=== PATIENT | male | born 1985 | race Caucasian/White ===

== ENCOUNTER 2016-12-15 18:14 | Emergency (ER) | payer OTHER, MEDICAID ==
[2016-12-15] MEDS ORDERED: ONDANSETRON 4 MG TAB.RAPDIS PO ONE (18:46)
[2016-12-15] MEDS ORDERED: ACETAMINOPHEN WITH CODEINE #3 TABLET PO ONE (18:46)
--- NOTE | 2016-12-15 18:53 | ER Document Report ---
ED Medical Screen (RME) - General Chief Complaint: Post Surgical Pain Stated Complaint: POST OP COMPLICATIONS Time Seen by Provider: 12/15/16 18:45 Mode of Arrival: Wheelchair Information source: Patient Notes: Pt is a 31 year old male who presents to the ER today for left knee pain after having meniscus repair done Friday in [place] by morenita Garciasurprabhakar at [facility]. He states he's had increased pain in the knee, when he stands he gets pale and has 10/10 pain, nauseated and has had a fever today of 100.5F but took one norco which did not relieve any pain but helped the fever. He states he's seen blood through adriana wrap and the leg is warm to touch. TRAVEL OUTSIDE OF THE [place] IN LAST 30 DAYS: No - Related Data Allergies/Adverse Reactions: No Known Allergies Allergy (Verified 12/15/16 18:45) Past Medical History - General Information source: Patient Renal/ Medical History: Denies: Hx Peritoneal Dialysis Past Surgical History: Reports: Hx Abdominal Surgery - hERNIA REPAIR - Immunizations Hx Diphtheria, Pertussis, Tetanus Vaccination: Yes Review of Systems - Review of Systems Constitutional: See HPI Musculoskeletal: See HPI Skin: See HPI Physical Exam - Vital signs Vitals: Temp Pulse Resp BP Pulse Ox 98.3 F 101 H 16 127/78 H 97 12/15/16 18:17 12/15/16 18:17 12/15/16 18:17 12/15/16 18:17 12/15/16 18:17 - Notes Notes: PHYSICAL EXAMINATION: GENERAL: in wheelchair with leg propped up in brace, but in no acute distress. EXTREMITIES: left leg in brace from surgery Course - Vital Signs Vital signs: Temp Pulse Resp BP Pulse Ox 98.3 F 101 H 16 127/78 H 97 12/15/16 18:17 12/15/16 18:17 12/15/16 18:17 12/15/16 18:17 12/15/16 18:17
[2016-12-15 19:46] LABS: ABSOLUTE BASOPHILS # (AUTO) 0.1 10^3/uL (0.0-0.2); ABSOLUTE EOSINOPHILS # (AUTO) 0.3 10^3/uL (0.0-0.6); ABSOLUTE LYMPHOCYTES (AUTO) 3.4 10^3/uL (0.5-4.7); ABSOLUTE MONOCYTES (AUTO) 0.7 10^3/uL (0.1-1.4); ABSOLUTE NEUT (AUTO) 6.4 10^3/uL (1.7-8.2); BASOPHILS % (AUTO) 0.6 % (0-2); EOSINOPHILS % (AUTO) 2.4 % (0-6); HEMATOCRIT 38.2 % (37.9-51.0); HEMOGLOBIN 12.6 g/dL (13.5-17.0); HGB HCT DIFFERENCE -0.4; LYMPHOCYTES % (AUTO) 31.6 % (13-45); MEAN CORPUSCULAR HEMOGLOBIN 28.9 pg (27.0-33.4); MEAN CORPUSCULAR HGB CONC 32.9 g/dL (32.0-36.0); MEAN CORPUSCULAR VOLUME 88 fl (80-97); MONOCYTES % (AUTO) 6.6 % (3-13); RED BLOOD COUNT 4.36 10^6/uL (4.35-5.55); RED CELL DISTRIBUTION WIDTH 12.7 % (11.5-14.0); SEGMENTED NEUTROPHILS % (AUTO) 58.8 % (42-78); WHITE BLOOD COUNT 10.9 10^3/uL (4.0-10.5)
[2016-12-15 20:04] LABS: ALANINE AMINOTRANSFERASE 32 U/L (21-72); ALBUMIN 3.7 g/dL (3.5-5.0); ALKALINE PHOSPHATASE 63 U/L (38-126); ANION GAP 12 (5-19); ASPARTATE AMINO TRANSFERASE 17 U/L (17-59); BILIRUBIN,DIRECT 0.4 mg/dL (0.0-0.4); BILIRUBIN,TOTAL 0.6 mg/dL (0.2-1.3); BLOOD UREA NITROGEN 12 mg/dL (7-20); CALCIUM 8.8 mg/dL (8.4-10.2); CARBON DIOXIDE 25 mmol/L (22-30); CHLORIDE 104 mmol/L (98-107); CREATININE RESULT 0.98 mg/dL (0.52-1.25); GLUCOSE 99 mg/dL (75-110); POTASSIUM 4.1 mmol/L (3.6-5.0); SODIUM 140.5 mmol/L (137-145); TOTAL PROTEIN 6.5 g/dL (6.3-8.2)
[2016-12-15] MEDS ORDERED: MORPHINE SULFATE 10 MG/ML INJ IM ONE (20:57)
--- NOTE | 2016-12-15 21:03 | ER Document Report ---
ED Extremity Problem, Lower - General Chief Complaint: Post Surgical Pain Stated Complaint: POST OP COMPLICATIONS Time Seen by Provider: 12/15/16 18:45 Mode of Arrival: Wheelchair Notes: Patient is a 31-year-old male that comes emergency department for chief complaint of left knee pain, he had a meniscal repair and osteotomy performed on Friday12/13/[address] Betancourt at [facility]. He states today pain has particularly increased in the knee, he states that if he stands the pain is severe and nauseating, he also states that today he felt feverish and checked his temperature and had a temperature of 100.5. He states his leg is increasingly warm to the touch. Past medical history of 2 surgeries performed on the same knee, migraines, denies any other medical history. TRAVEL OUTSIDE OF THE [place] IN LAST 30 DAYS: No - Related Data Allergies/Adverse Reactions: No Known Allergies Allergy (Verified 12/15/16 18:45) Past Medical History - General Information source: Patient - Social History Smoking Status: Never Smoker Drug Abuse: None Lives with: Family Family History: Reviewed & Not Pertinent - Medical History Medical History: Negative Renal/ Medical History: Denies: Hx Peritoneal Dialysis Past Surgical History: Reports: Hx Abdominal Surgery - hERNIA REPAIR - Immunizations Hx Diphtheria, Pertussis, Tetanus Vaccination: Yes Review of Systems - Review of Systems Constitutional: No symptoms reported EENT: No symptoms reported Cardiovascular: No symptoms reported Respiratory: No symptoms reported Gastrointestinal: No symptoms reported Genitourinary: No symptoms reported Male Genitourinary: No symptoms reported Musculoskeletal: See HPI Skin: No symptoms reported Hematologic/Lymphatic: No symptoms reported Neurological/Psychological: No symptoms reported Physical Exam - Vital signs Vitals: Temp Pulse Resp BP Pulse Ox 98.3 F 101 H 16 127/78 H 97 12/15/16 18:17 12/15/16 18:17 12/15/16 18:17 12/15/16 18:17 12/15/16 18:17 Interpretation: Normal - General General appearance: Appears well In distress: None - HEENT Head: Normocephalic, Atraumatic Eyes: Normal Conjunctiva: Normal Extraocular movements intact: Yes Eyelashes: Normal Pupils: PERRL Nasal: Normal Mouth/Lips: Normal Mucous membranes: Normal Pharynx: Normal Neck: Normal - Respiratory Respiratory status: No respiratory distress Chest status: Nontender Breath sounds: Normal Chest palpation: Normal - Cardiovascular Rhythm: Regular. No: Tachycardia Heart sounds: Normal auscultation, S1 appreciated, S2 appreciated Murmur: No - Abdominal Inspection: Normal Distension: No distension Bowel sounds: Normal Tenderness: Nontender Organomegaly: No organomegaly - Back Back: Normal, Nontender. No: Tender, Vertebra tenderness - Extremities General upper extremity: Normal inspection, Nontender, Normal color, Normal ROM , Normal temperature General lower extremity: Other - 11 cm vertical incision extending below the right patella, lucy in place, no purulent drainage, good wound closure/ healing. Small 1 cm adjacent stapled wound lateral to this also with no unremarkable appearance. General knee is erythematous, warm, swollen. No pain out of proportion on examination of the area, normal distal sensation and capillary refill, normal distal pulses. Unremarkable exam otherwise. - Neurological Neuro grossly intact: Yes Cognition: Normal Orientation: AAOx4 Hewitt Coma Scale Eye Opening: Spontaneous Sima Coma Scale Verbal: Oriented Sima Coma Scale Motor: Obeys Commands Sima Coma Scale Total: 15 Speech: Normal Motor strength normal: LUE, RUE, LLE, RLE Sensory: Normal - Psychological Associated symptoms: Normal affect, Normal mood - Skin Skin Temperature: Warm Skin Moisture: Dry Skin Color: Normal Course - Re-evaluation Re-evalutation: CBC shows mild leukocytosis with no shift. ESR is very slightly elevated, CRP is slightly elevated. No overt abnormalities on imaging. Knee is swollen and has some surrounding erythema, however wounds look normal in appearance, calf is not significantly tender, there is no streaking away from the site. Discussed with Dr. Flores. Called and spoke with patient's surgeon, Dr. Betancourt, patient provided contact number. Discussed presentation, discussed labs, discussed x-ray. Discussed examination of the knee and reported fever of 100.5. He states that the temperature, exam, and workup at this time are somewhat reasonable although the CRP level is nonspecific. He recommends that patient follow-up closely in the office, does not recommend antibiotics to be started at this time, recommends patient given additional return precautions, I discussed these with patient in detail, patient states he will follow-up closely and he understands return precautions while. Patient states agreement with plan. Patient given copy of his labs/imaging for his follow-up. Wound dressing applied, premade splint that patient has been wearing reapplied Patient asking for small amount of additional pain medicine, this was provided for him. - Vital Signs Vital signs: Temp Pulse Resp BP Pulse Ox 98.1 F 73 16 122/71 94 12/16/16 00:40 12/16/16 00:40 12/16/16 00:40 12/16/16 00:40 12/16/16 00:40 - Laboratory Result Diagrams: 12/15/16 19:20 12/15/16 19:20 Laboratory results interpreted by me: 12/15/16 12/15/16 12/15/16 19:20 19:20 19:20 WBC 10.9 H Hgb 12.6 L ESR 47 H C-Reactive Protein 84.5 H Discharge - Discharge Clinical Impression: Post-op pain Condition: Stable Disposition: HOME, SELF-CARE Additional Instructions: At this time there appears to be expected pain and swelling after surgery. Follow up closely in the office with your Provider, take the data from today. Take the given meds with the nausea medication if needed. Return immediately for any concerning or worsening symptoms - fever 101.5 F or greater, severe swelling, spreading redness, discolored wound discharge, or any other concerning symptoms. Prescriptions: Ondansetron [Zofran Odt 4 mg Tablet] 1 - 2 tab PO Q4H PRN #20 tab.rapdis PRN Reason: For Nausea/Vomiting Oxycodone HCl/Acetaminophen [Percocet 5-325 mg Tablet] 1 - 2 tab PO Q4H PRN #20 tablet PRN Reason:
--- NOTE | 2016-12-15 21:35 | RADIOLOGY REPORT (SQ) ---
EXAM DESCRIPTION: KNEE LEFT 4 VIEW COMPLETED DATE/TIME: 12/15/2016 9:22 pm REASON FOR STUDY: post op pain/fever COMPARISON: None. NUMBER OF VIEWS: Four views. TECHNIQUE: AP, lateral, and both oblique radiographic images acquired of the left knee. LIMITATIONS: None. FINDINGS: MINERALIZATION: Normal. BONES: Postsurgical changes are identified involving the proximal tibia with bone fragments transfixe d by 2 orthopedic screws. No cortical erosions or lytic areas are identified to suggest bony involve ment by osteomyelitis. JOINT: No effusion. SOFT TISSUES: Soft tissue swelling is identified anteriorly and I cannot exclude a couple gas collect ions in the soft tissues anterior to the patella. This may be postsurgical in nature however the pos sibility of an infectious process cannot be excluded. OTHER: Skin sutures are identified. IMPRESSION: Postsurgical changes as noted above. No plain film evidence for bony involvement by ost eomyelitis. Soft tissue swelling is identified anteriorly and I cannot exclude a couple gas collecti ons in the soft tissues anterior to the patella. This may be postsurgical in nature however the poss ibility of an infectious process cannot be excluded. Clinical correlation is recommended. Other fin dings as noted above TECHNICAL DOCUMENTATION: JOB ID: [id number] [employer]- All Rights Reserved
[2016-12-15] MEDS ORDERED: HYDROMORPHONE HCL INJ/PF 2 MG/ML AMPULE IV ONE (23:26)
[2016-12-15] MEDS ORDERED: ONDANSETRON HCL INJ/PF 4 MG/2 ML SDV IV ONE (23:26)
[2016-12-15] MEDS ORDERED: HYDROMORPHONE HCL INJ/PF 2 MG/ML AMPULE IM ONE (23:42)
[2016-12-16 00:43] VITALS: BP 122/71
== END 2016-12-16 00:45 | disposition home or self-care (01) ==
LOC: ER 18:14
DX: G89.18 Other acute postprocedural pain (principal); M25.562 Pain in left knee; Z98.890 Other specified postprocedural states; R50.9 Fever, unspecified
CPT/HCPCS: 99284; 96372; 36415; 85025; 85652; 86140; 80053; 73562; S0119; J2270; J1170